=== PATIENT | female | born 1985 | race Caucasian/White ===

== ENCOUNTER 2016-05-18 18:35 | Emergency (ER) | payer MEDICAID ==
[~2016-05-18] VITALS: Ht 162.6 cm; Wt 118.5 kg
[2016-05-18 18:37] VITALS: Ht 162.6 cm; Wt 118.5 kg
[2016-05-18] MEDS ORDERED: HYDROCODONE/APAP (10/325) TAB PO ONE (20:30)
--- NOTE | 2016-05-18 21:36 | RADRPT ---
PROCEDURE: XR Left Hip. CLINICAL INDICATION: Left hip pain status post slip and fall. TECHNIQUE: AP and frog lateral views of the left hip were performed. COMPARISON: None. FINDINGS: There is normal mineralization and alignment. No acute fracture or osseous lesion is identified. There are no significant degenerative changes in the hip. The soft tissues are unremarkable. IMPRESSION: Unremarkable left hip. RPTAT: UU Physician Rita Date Time Electronically viewed and signed by Physician Rita on 05/18/2016 21:36 RS/
--- NOTE | 2016-05-18 21:36 | RADRPT ---
PROCEDURE: XR Chest. CLINICAL INDICATION: Pain status post a fall. TECHNIQUE: Single frontal view of the chest was obtained COMPARISON: None FINDINGS: The heart and mediastinum are within normal limits. The lungs are clear. There is no pleural effusion or pneumothorax. IMPRESSION: No acute disease. RPTAT: UU Physician Rita Date Time Electronically viewed and signed by Physician Rita on 05/18/2016 21:36 RS/
--- NOTE | 2016-05-18 21:38 | RADRPT ---
PROCEDURE: X-ray left ribs CLINICAL INDICATION: Left rib pain. TECHNIQUE: 3 views left ribs. COMPARISON: None FINDINGS: No acute fracture dislocation. Likely calcified granuloma at the left costophrenic angle. Soft tiss ues otherwise unremarkable. IMPRESSION: No acute fracture. RPTAT: UU Physician Rita Date Time Electronically viewed and signed by Ken Price Physician on 05/18/2016 21:37 RS/
--- NOTE | 2016-05-18 21:39 | RADRPT ---
PROCEDURE: X-ray sacrum and coccyx. CLINICAL INDICATION: Fluid and fall with pain in the sacrum and coccyx. TECHNIQUE: 4 views of the sacrum and coccyx. COMPARISON: None. FINDINGS: No acute fracture or dislocation. Mild to moderate degenerative changes in the sacroiliac joints ar e symmetric. Soft tissues unremarkable. IMPRESSION: No acute fracture, with mild to moderate degenerative changes in the sacroiliac joints. RPTAT: UU Physician Rita Date Time Electronically viewed and signed by Physician Rita on 05/18/2016 21:39 RS/
[2016-05-18] MEDS ORDERED: ONDANSETRON (ODT) 4 MG TAB ODT STA (22:03)
[2016-05-18] MEDS ORDERED: HYDR-902 PO (22:23)
[2016-05-18] MEDS ORDERED: IBUP-1542 PO (22:24)
[2016-05-18] MEDS ORDERED: ONDA8TAB14 PO (22:24)
--- NOTE | 2016-05-18 22:35 | ERD ---
ER Documentation Chief Complaint Date/Time DATE: 05/18/16 TIME: 22:26 Chief Complaint sp left sided absd pain sustained after ground level fall fell left side HPI Patient is a 30-year-old female who presents to the emergency department with left-sided hip pain after slip and fall injury earlier today. Patient states that she was walking outside when she slipped in the rain and hit a parked car with her left hip. Patient reports that the pain was minimal initially but as the evening progressed, the pain became severe. Patient states her current pain level is a 10 out of 10. Patient states that the pain is sharp. Patient reports taking ibuprofen 600 mg, 2 hours prior which did minimally alleviate her pain. Patient denies any chest pain, shortness breath or diaphoresis. Patient denies any head injury, nausea, vomiting, loss of consciousness, decreased appetite, excessive sleepiness. Patient denies any abdominal pain. Patient is able to ambulate without any difficulty. Patient denies any saddle anesthesia, urinary incontinence, stool incontinence. ROS All systems reviewed and are negative except as per history of present illness. Medications Home Meds Active Scripts Ondansetron (Ondansetron Odt) 8 Mg Tab.rapdis, 8 MG PO Q6H Y for NAUSEA AND/OR VOMITING, #10 TAB Prov:JARED VILLAGRAN PA-C 05/18/16 Ibuprofen* (Ibuprofen*) 600 Mg Tablet, 600 MG PO Q6, #20 TAB Prov:JARED VILLAGRAN PA-C 05/18/16 Hydrocodone/Acetaminophen (Hull 10-325 Tablet) 1 Each Tablet, 1 TAB PO Q6H Y for PAIN, #10 TAB Prov:JARED VILLAGRAN PA-C 05/18/16 Allergies Allergies: Coded Allergies: No Known Allergy (Unverified , 05/18/16) PMhx/Soc History of Surgery: Yes (LEEP) Anesthesia Reaction: No Hx Neurological Disorder: No Hx Respiratory Disorders: No Hx Cardiac Disorders: No Hx Psychiatric Problems: No Hx Miscellaneous Medical Probl: Yes (HPV) Hx Alcohol Use: Yes Hx Substance Use: No Hx Tobacco Use: No Smoking Status: Never smoker FmHx Family History: diabetes Physical Exam Vitals Vital Signs Date Time Temp Pulse Resp B/P Pulse Ox O2 Delivery O2 Flow Rate FiO2 05/18/16 18:37 97.8 106 20 125/87 97 Physical Exam GENERAL: Well-developed, well-nourished female. Appears in no acute distress. HEAD: Normocephalic, atraumatic. No deformities or ecchymosis. No hematomas noted. EYE: Pupils equal, round, and reactive to light. EOMs intact. No conjunctival erythema. No scleral icterus. No eye discharge. ENT: External ear without any masses or tenderness. Auditory canals clear bilaterally. No hemotypanium bilaterally. TM visualized bilaterally, non- erythematous, non-bulging. Nasal mucosa pink with no discharge. Oropharynx is pink without any tonsillar erythema or exudates. No uvula deviation. No kissing tonsils. Bilateral mastoid tenderness. NECK: Supple. No lymphadenopathy or thyromegaly. No meningismus. Trachea midline. No midline tenderness of cervical spine, TORSO: No obvious deformity. No ecchymosis noted. LUNG: Clear to auscultation bilaterally. No rhonchi, wheezing, rales or coarse breath sounds. HEART: Regular rate and rhythm. No murmurs, rubs or gallops. ABDOMEN: Soft, nontender, and nondistended. Positive bowel sounds in all four quadrants. No rebound tenderness, no guarding. (-) McBurney's point tenderness. No CVA tenderness. HIP: No obvious signs of deformity. No ecchymosis noted. Nontender to palpation of bilateral hips. No hip instability. Normal range of motion of hip. BACK: No midline tenderness. Tender to palpation in the left buttocks region. EXTREMITIES: Equal pulses bilaterally. No peripheral clubbing, cyanosis or edema. No unilateral leg swelling. NEUROLOGIC: Alert and oriented to person, place and time. Moving all four extremities. 5/5 strength in all extremities. Normal speech. Steady gait. SKIN: Normal color. Warm and dry. No rashes or lesions. LEFT LEG: No obvious deformity, erythema, ecchymosis or swelling. Skin intact. Full ROM knee, ankle. Nontender to palpation of femur, knee, lower leg.. No joint line tenderness. No valgus/varus instability. Sensation intact to light touch. Neurovascularly intact. (Able to plantarflex, dorsiflex, lora foot, invert foot, raise big toe.) 2+ DP and DT pulses. Results 24 hrs Current Medications Medications (Trade) Dose Ordered Sig/Belinda Route PRN Reason Start Time Stop Time Status Last Admin Dose Admin Acetaminophen/ Hydrocodone Bitart (Hull ()) 1 tab ONCE ONCE PO 05/18/16 20:30 05/18/16 20:31 DC 05/18/16 20:26 Ondansetron HCl (Zofran Odt) 8 mg ONCE STAT ODT 05/18/16 22:03 05/18/16 22:04 DC Procedures/MDM ED COURSE: The patient was stable throughout ED course. I kept the patient and/or family informed of laboratory and diagnostic imaging results throughout the ED course. DIAGNOSTIC IMAGING: Read by radiologist. DIAGNOSTIC IMAGING REPORT Patient: MARCO LEVINE : 1985 Age: 30 Sex: F MR #: [id number] DOS: 05/18/162012 Ordering MD: JARED VILLAGRAN PA-C Location: [facility] Room/Bed: PROCEDURE: XR Chest. CLINICAL INDICATION: Pain status post a fall. TECHNIQUE: Single frontal view of the chest was obtained COMPARISON: None FINDINGS: The heart and mediastinum are within normal limits. The lungs are clear. There is no pleural effusion or pneumothorax. IMPRESSION: No acute disease. RPTAT: UU Physician Rita Date Time Electronically viewed and signed by Physician Rita on 05/18/2016 21:36 RS/ CC: JARED VILLAGRAN PA-C DIAGNOSTIC IMAGING REPORT Patient: MARCO LEVINE : 1985 Age: 30 Sex: F MR #: [id number] DOS: 05/18/162012 Ordering MD: JARED VILLAGRAN PA-C Location: [facility] Room/Bed: PROCEDURE: XR Left Hip. CLINICAL INDICATION: Left hip pain status post slip and fall. TECHNIQUE: AP and frog lateral views of the left hip were performed. COMPARISON: None. FINDINGS: There is normal mineralization and alignment. No acute fracture or osseous lesion is identified. There are no significant degenerative changes in the hip. The soft tissues are unremarkable. IMPRESSION: Unremarkable left hip. RPTAT: UU Physician Rita Date Time Electronically viewed and signed by Physician Rita on 05/18/2016 21:36 RS/ CC: JARED VILLAGRAN PA-C DIAGNOSTIC IMAGING REPORT Patient: MARCO LEVINE : 1985 Age: 30 Sex: F MR #: [id number] DOS: 05/18/162012 Ordering MD: JARED VILLAGRAN PA-C Location: [facility] Room/Bed: PROCEDURE: X-ray left ribs CLINICAL INDICATION: Left rib pain. TECHNIQUE: 3 views left ribs. COMPARISON: None FINDINGS: No acute fracture dislocation. Likely calcified granuloma at the left costophrenic angle. Soft tissues otherwise unremarkable. IMPRESSION: No acute fracture. RPTAT: UU Physician Rita Date Time Electronically viewed and signed by Physician Rita on 05/18/2016 21:37 RS/ CC: JARED VILLAGRAN PA-C DIAGNOSTIC IMAGING REPORT Patient: MARCO LEVINE : 1985 Age: 30 Sex: F MR #: [id number] DOS: 05/18/162012 Ordering MD: JARED VILLAGRAN PA-C Location: [facility] Room/Bed: PROCEDURE: X-ray sacrum and coccyx. CLINICAL INDICATION: Fluid and fall with pain in the sacrum and coccyx. TECHNIQUE: 4 views of the sacrum and coccyx. COMPARISON: None. FINDINGS: No acute fracture or dislocation. Mild to moderate degenerative changes in the sacroiliac joints are symmetric. Soft tissues unremarkable. IMPRESSION: No acute fracture, with mild to moderate degenerative changes in the sacroiliac joints. RPTAT: UU Physician Rita Date Time Electronically viewed and signed by Physician Rita on 05/18/2016 21:39 RS/ CC: JARED VILLAGRAN PA-C MEDICATIONS GIVEN: Hull, Zofran Patient tolerated medication well with no adverse reactions. Patient reported improvement in pain. MEDICAL DECISION MAKING: This is a 30-year-old female who presents with left-sided hip pain status post ground-level fall. Patient states she slipped in the rain earlier today. Vital signs were reviewed. Patient was afebrile. CXR was negative. Left rib series x- ray was negative. Left hip x-ray was negative. X-ray of the sacrum showed no acute fracture, with mild to moderate degenerative changes in the sacroiliac joints. Given these findings, the patients presentation is most consistent with hip contusion vs muscle strain/spasms. I have a much lower clinical concern for hip fracture, hip dislocation, hip bursitis, spinal fracture, cauda equina syndrome, sciatica, pyelonephritis, nephrolithiasis. Low suspicion for rib fracture, pleural effusion or pneumothorax. PRESCRIPTIONS: Hull, ibuprofen, Zofran DISCHARGE: At this time, patient is stable for discharge and outpatient management. RICE therapy and ROM exercises were advised to avoid stiffness. I have instructed the patient to follow-up with his/her primary care physician in 1-2 days. I have discussed with the patient the possibility of needing to see an magneto specialist for further workup and imaging if the pain persists. I have instructed the patient to promptly return to the ER for any new or worsening symptoms including increased pain, swelling, redness, warmth or fever. The patient and/or family expressed understanding of and agreement with this plan. All questions were answered. Home care instructions were provided. Departure Diagnosis: Primary Impression: Contusion of rib on left side Encounter type: initial encounter Qualified Code: S20.212A - Contusion of rib on left side, initial encounter Additional Impression: Contusion, hip and thigh Encounter type: initial encounter Laterality: left Qualified Code: S70.02XA - Contusion, hip and thigh, left, initial encounter Condition: Stable Patient Instructions: Hip Contusion Referrals: [facility] YOU HAVE RECEIVED A MEDICAL SCREENING EXAM AND THE RESULTS INDICATE THAT YOU DO NOT HAVE A CONDITION THAT REQUIRES URGENT TREATMENT IN THE EMERGENCY DEPARTMENT. FURTHER EVALUATION AND TREATMENT OF YOUR CONDITION CAN WAIT UNTIL YOU ARE SEEN IN YOUR DOCTORS OFFICE WITHIN THE NEXT 1-2 DAYS. IT IS YOUR RESPONSIBILITY TO MAKE AN APPOINTMENT FOR FOLOW-UP CARE. IF YOU HAVE A PRIMARY DOCTOR --you should call your primary doctor and schedule an appointment IF YOU DO NOT HAVE A PRIMARY DOCTOR YOU CAN CALL OUR PHYSICIAN REFERRAL HOTLINE AT IF YOU CAN NOT AFFORD TO SEE A PHYSICIAN YOU CAN CHOSE FROM THE FOLLOWING [facility] [address] Member Services [facility]. [facility] [address] [facility] [address] Member Services [facility]. [facility] [address] [facility] [address] [facility] [address] [facility]. [facility] [address] [facility]. [facility] YOU HAVE RECEIVED A MEDICAL SCREENING EXAM AND THE RESULTS INDICATE THAT YOU DO NOT HAVE A CONDITION THAT REQUIRES URGENT TREATMENT IN THE EMERGENCY DEPARTMENT. FURTHER EVALUATION AND TREATMENT OF YOUR CONDITION CAN WAIT UNTIL YOU ARE SEEN IN YOUR DOCTORS OFFICE WITHIN THE NEXT 1-2 DAYS. IT IS YOUR RESPONSIBILITY TO MAKE AN APPOINTMENT FOR FOLOW-UP CARE. IF YOU HAVE A PRIMARY DOCTOR --you should call your primary doctor and schedule and appointment IF YOU DO NOT HAVE A PRIMARY DOCTOR YOU CAN CALL OUR PHYSICIAN REFERRAL HOTLINE AT . IF YOU CAN NOT AFFORD TO SEE A PHYSICIAN YOU CAN CHOSE FROM THE FOLLOWING [facility] INSTITUTIONS: [facility] [address] [place] [address] [facility] [address] [place] [address] [facility] [address] [place] [address] [facility], [facility] Hours: Mon-Fri 9:00 AM - 5:00 PM Additional Instructions: Call your primary care doctor TOMORROW for an appointment during the next 1-2 days.See the doctor sooner or return here if your condition worsens before your appointment time. Unable to rule out a ligamentous tendon injuries at this time. Patient advised that if the pain persists he may need to see an magneto specialist and/or obtain MRI imaging. JARED VILLAGRAN PA-C May 18, 2016 22:35
== END 2016-05-18 22:55 | disposition left against medical advice (07) ==
LOC: FTE 18:35
DX: S20.212A Contusion of left front wall of thorax, initial encounter (principal); S70.02XA Contusion of left hip, initial encounter; S70.12XA Contusion of left thigh, initial encounter; W01.198A Fall on same level from slipping, tripping and stumbling with subsequent striking against other object, initial encounter; Y92.9 Unspecified place or not applicable
CPT/HCPCS: 71010; 71100; 72220; 73510; Z7502; Z7610

== ENCOUNTER → 2018-06-23 | Emergency (ER) | payer MEDICAID ==
[~2018-06-23] VITALS: Wt 130.0 kg
[~2018-06-23] MED LIST: FAMO-96 PO; FAMOTIDINE 20 MG INJ IV ONE; HYDR-3980 PO; IBUP-1542 PO; NITR-58 PO; OMEP20CA16 PO; ONDA8TAB14 PO; ONDANSETRON 4 MG INJ IV STA; SOD CHLORIDE 0.9% 1,000 ML IV STA; morphine 4 MG/ML VIAL IV STA
[2018-06-23 17:16] VITALS: BP 171/84; PULSE 112; RESP 18
--- NOTE | 2018-06-23 21:04 | ERD ---
ER Documentation Chief Complaint Chief Complaint DIARRHEA X 3 DAYS HPI 32-year-old female states that she was recently diagnosed with influenza about a week prior to being seen presents to the ED complaining of loose diarrhea for the past 3 days. Patient states that she was seen by her primary care physician last Tuesday and was given azithromycin, Tessalon Perles and she has been compliant with it. She states that she feels as if she has acid reflux now due to the medications. Patient states that she has been seen by her primary which they did blood work on her and told her that her liver enzymes were mildly elevated in which she has to get them repeated soon. LMP started yesterday., Patient states that she has black stools however she did take Pepto-Bismol ROS All systems reviewed and are negative except as per history of present illness. Medications Home Meds Active Scripts Nitrofurantoin Monohyd Macrocr* (Macrobid*) 100 Mg Capsr, 100 MG PO BID for 5 Days, CAP Prov:RON MONTANEZ PA-C 06/23/18 Omeprazole* (Omeprazole*) 20 Mg Capsule.dr, 20 MG PO DAILY, #14 Prov:RON MONTANEZ PA-C 06/23/18 Famotidine* (Pepcid*) 20 Mg Tablet, 20 MG PO QHS for 4 Days, TAB Prov:RON MONTANEZ PA-C 06/23/18 Ondansetron (Ondansetron Odt) 8 Mg Tab.rapdis, 8 MG PO Q6H PRN for NAUSEA AND/OR VOMITING, #30 TAB Prov:RON MONTANEZ PA-C 06/23/18 Ondansetron (Ondansetron Odt) 8 Mg Tab.rapdis, 8 MG PO Q6H PRN for NAUSEA AND/OR VOMITING, #10 TAB Prov:JARED VILLAGRAN PA-C 05/18/16 Ibuprofen* (Ibuprofen*) 600 Mg Tablet, 600 MG PO Q6, #20 TAB Prov:JARED VILLAGRAN PA-C 05/18/16 Hydrocodone/Acetaminophen (Armstrong 10-325 Tablet) 1 Each Tablet, 1 TAB PO Q6H PRN for PAIN, #10 TAB Prov:JARED VILLAGRAN PA-C 05/18/16 Allergies Allergies: Coded Allergies: No Known Allergy (Unverified , 05/18/16) PMhx/Soc Medical and Surgical Hx: pt denies Medical Hx History of Surgery: Yes (LEEP) Anesthesia Reaction: No Hx Neurological Disorder: No Hx Respiratory Disorders: No Hx Cardiac Disorders: No Hx Psychiatric Problems: No Hx Miscellaneous Medical Probl: Yes (HPV) Hx Alcohol Use: Yes Hx Substance Use: No Hx Tobacco Use: No Physical Exam Vitals Vital Signs Date Temp Pulse Resp B/P (MAP) Pulse Ox O2 O2 Flow FiO2 Time Delivery Rate 06/23/18 99.1 112 18 171/84 99 17:16 (113) Physical Exam GENERAL: well-developed/well-nourished, in no apparent distress, non-toxic appe aring HENT: NC/AT, moist mucous membranes EYES: Conjunctiva normal NECK: Supple, no lymphadenopathy PULM: CTA bilaterally, no rales, rhonchi, or wheezing heard CV: Normal S1S2, RRR, good capillary refill GI: Soft, non-distended, mild tender to palpation in all quadrants Normal bowel sounds, no masses or organomegaly felt on exam No gross peritonitis, no bruits Negative Rovsing, negative Castro, negative McBurney's point, Negative CVAT BACK: No masses EXT: No clubbing, cyanosis, or edema NEURO: Alert and Orientated SKIN: Intact, normal turgor PSYCH: Normal mood and mentation Result Diagram: 06/23/18183206/23/18 1833 Results 24 hrs Laboratory Tests Test 06/23/18 18:33 White Blood Count 12.4 10^3/ul Red Blood Count 5.32 10^6/ul Hemoglobin 15.9 g/dl Hematocrit 46.9 % Mean Corpuscular Volume 88.2 fl Mean Corpuscular Hemoglobin 29.9 pg Mean Corpuscular Hemoglobin Concent 33.9 g/dl Red Cell Distribution Width 13.1 % Platelet Count 242 10^3/UL Mean Platelet Volume 11.4 fl Immature Granulocytes % 1.000 % Neutrophils % 58.9 % Lymphocytes % 30.1 % Monocytes % 6.2 % Eosinophils % 3.3 % Basophils % 0.5 % Nucleated Red Blood Cells % 0.0 /100WBC Immature Granulocytes # 0.120 10^3/ul Neutrophils # 7.3 10^3/ul Lymphocytes # 3.7 10^3/ul Monocytes # 0.8 10^3/ul Eosinophils # 0.4 10^3/ul Basophils # 0.1 10^3/ul Nucleated Red Blood Cells # 0.0 10^3/ul Urine Color YELLOW Urine Clarity CLOUDY Urine pH 5.0 Urine Specific Franklin 1.029 Urine Ketones TRACE mg/dL Urine Nitrite NEGATIVE mg/dL Urine Bilirubin NEGATIVE mg/dL Urine Urobilinogen 1+ mg/dL Urine Leukocyte Esterase 1+ Nahun/ul Urine Microscopic RBC 89 /HPF Urine Microscopic WBC 5 /HPF Urine Squamous Epithelial Cells MANY /HPF Urine Bacteria FEW /HPF Urine Mucus FEW /HPF Urine Hemoglobin 3+ mg/dL Urine Glucose NEGATIVE mg/dL Urine Total Protein 1+ mg/dl Urine Test NEGATIVE Sodium Level 139 mmol/L Potassium Level 3.5 mmol/L Chloride Level 104 mmol/L Carbon Dioxide Level 25 mmol/L Anion Gap 10 Blood Urea Nitrogen 12 mg/dl Creatinine 0.67 mg/dl Est Glomerular Filtrat Rate mL/min > 60 mL/min Glucose Level 115 mg/dl Calcium Level 9.3 mg/dl Total Bilirubin 0.2 mg/dl Direct Bilirubin 0.00 mg/dl Indirect Bilirubin 0.2 mg/dl Aspartate Amino Transf (AST/SGOT) 79 IU/L Alanine Aminotransferase (ALT/SGPT) 110 IU/L Alkaline Phosphatase 94 IU/L Total Protein 8.4 g/dl Albumin 4.3 g/dl Globulin 4.10 g/dl Albumin/Globulin Ratio 1.04 Lipase 248 U/L Current Medications Medications Dose Sig/Belinda Start Time Status Last (Trade) Ordered Route PRN Stop Time Admin Dose Reason Admin Sodium 1,000 ml @ Q1H STAT 06/23/18 DC Chloride 1,000 mls/hr IV 18:12 06/23/18 18:22 Morphine 4 mg ONCE STAT 06/23/18 DC 06/23/18 Sulfate IV 18:12 18:55 (morphine) 06/23/18 18:14 Ondansetron 4 mg ONCE STAT 06/23/18 DC 06/23/18 HCl (Zofran IV 18:12 18:55 Inj) 06/23/18 18:14 Famotidine 20 mg ONCE ONCE 06/23/18 DC 06/23/18 (Pepcid Iv) IV 18:30 18:55 2/15/19 18:31 Procedures/MDM 32-year-old female presents to the ED complaining of epigastric abdominal pain and diarrhea for the past 2 days. Patient was recently diagnosed with influenza about a week prior to being seen. This likely due to a viral syndrome. atient is well-appearing, her abdominal exam was nonspecific and benign. IV access established and patient was given a liter fluids. Patient did have mild leukocytosis and elevated transaminases 79/110, patient did not have any signs of anemia, I discussed with her that it is best for her to see her primary care physician on Tuesday for further evaluation and management and to repeat these values. Patient looks well stable to be discharged home to continue to follow- up with her PCP return precautions have been given she understands agrees with this plan. Prescription for Zofran, Pepcid, Prilosec has been provided. Departure Diagnosis: Primary Impression: Diarrhea Additional Impression: Elevated transaminase level Condition: Stable Patient Instructions: Diet, Vomiting Or Diarrhea [6Yr-Adult], Influenza (Adult), Vomiting And Diarrhea, Nonspecific (Adult) Additional Instructions: FOLLOW UP WITH YOUR PRIMARY CARE PHYSICIAN TOMORROW.Return to this facility if you are not improving as expected. Take all medicines as directed. RON MONTANEZ PA-C Jun 23, 2018 21:04
== END | disposition home or self-care (01) ==
LOC: FTE 17:10
DX: R19.7 Diarrhea, unspecified (principal); R74.0 Nonspecific elevation of levels of transaminase and lactic acid dehydrogenase [LDH]
CPT/HCPCS: 36415; 80053; 81001; 83690; 84703; 85025; 96374; 96375; J2270; J2405; J7030; Z7502; Z7610